=== PATIENT | female | born 1955 | race Hispanic/Latino ===

== ENCOUNTER 2017-12-14 21:06 | Emergency (ER) | payer MEDICARE ==
[2017-12-14] MEDS ORDERED: IBUPROFEN 600 MG TABLET ONE (21:19)
== END 2017-12-14 22:26 | disposition home or self-care (01) ==
LOC: EDH 21:06
DX: S93.692A Other sprain of left foot, initial encounter (principal); S90.112A Contusion of left great toe without damage to nail, initial encounter; S60.222A Contusion of left hand, initial encounter; S80.02XA Contusion of left knee, initial encounter; W17.2XXA Fall into hole, initial encounter; Y93.89 Activity, other specified; Y92.89 Other specified places as the place of occurrence of the external cause; Y99.8 Other external cause status
CPT/HCPCS: 73630

== ENCOUNTER 2021-05-22 08:13 | Emergency (ER) | payer MEDICARE ==
[~2021-05-22] VITALS: Ht 152.4 cm; Wt 61.7 kg
[2021-05-22 08:22] VITALS: BP 132/76
[2021-05-22 08:50] LABS: BASOPHILS % (AUTO) 0.5 % (0.0-5.0); EOSINOPHILS % (AUTO) 0.6 % (0.0-8.0); HEMATOCRIT 42.3 % (36-48); LYMPHOCYTES % (AUTO) 20.1 % (21.0-51.0); MEAN CORPUSCULAR HEMOGLOBIN 30.1 pg (27.0-33.0); MEAN CORPUSCULAR VOLUME 88.3 fL (79-99); MONOCYTES % (AUTO) 6.6 % (3.0-13.0); NEUTROPHILS % (AUTO) 71.8 % (40.0-77.0); PLATELET COUNT (AUTO) 235 K/uL (130-400); RED BLOOD CELL COUNT(AUTO) 4.79 MIL/uL (4.00-5.50); RED CELL DISTRIBUTION WIDTH 12.1 % (11.0-15.5); WHITE BLOOD COUNT (AUTO) 10.9 K/uL (4.8-10.8)
[2021-05-22] MEDS ORDERED: KETOROLAC 15MG/ML VIAL (15MG/ML) IM ONE (09:00)
[2021-05-22] MEDS ORDERED: HYDROCODONE/ACETAMINOPHEN 5/325 MG TAB PO ONE (09:00)
[2021-05-22 09:02] LABS: INR 0.97 (0.85-1.15); PROTHROMBIN TIME 10.6 SEC (9.6-11.6)
[2021-05-22 09:03] LABS: ALBUMIN 3.6 g/dL (3.5-5.0); BILIRUBIN,TOTAL 0.9 mg/dL (0.2-1.0)
[2021-05-22 10:19] VITALS: BP 155/52
== END 2021-05-22 10:30 | disposition home or self-care (01) ==
LOC: EDH 08:13
DX: M27.69 Other endosseous dental implant failure (principal); K08.89 Other specified disorders of teeth and supporting structures
CPT/HCPCS: 36415; 80053; 85025; 85610; 96372; 99283; J1885